=== PATIENT | male | born 1975 | race Caucasian/White ===

== ENCOUNTER 2017-12-24 14:48 | Outpatient (CLI) | payer MEDICARE ==
[~2017-12-24 14:48] MED LIST: Gadobenate Dimeglumine 529 MG/1 ML (20ML VIAL) ONE
--- NOTE | 2017-12-24 17:04 | MRI ---
MRI CERVICAL SPINE WITH AND WITHOUT CONTRAST 12/24/17 HISTORY: Relapsing/remitting multiple sclerosis. Abnormal MRI. COMPARISON: 10/15/16, 10/02/16. TECHNIQUE: Cervical spine MRI is performed without and with intravenous gadolinium administration. Multisequenti al, multiplanar imaging is performed. FINDINGS: There is appropriate T1 marrow signal intensity of the cervical vertebrae. Cervical spine vertebral h eight is maintained. There is no fracture. There is no abnormal enhancement of the vertebral bodies. The visualized brain parenchyma, cervicomedullary junction, and upper thoracic cord have appropriate signal intensity. C2-C3: No significant central canal stenosis or foraminal narrowing. C3-C4: No significant central canal stenosis or foraminal narrowing. C4-C5: No significant central canal stenosis or foraminal narrowing. C5-C6: No significant central canal stenosis or foraminal narrowing. C6-C7: No significant central canal stenosis or foraminal narrowing. C7-T1: No significant central canal stenosis or foraminal narrowing. At the C4-C5 level, there is a 3 mm hyperintensity on the posterior left aspect of the cord without o bvious abnormal enhancement. This lesion is not definitively seen on the previous examination and may represent an interval demyelinating plaque, that is not currently actively demyelinating. There is a n additional area of T2 hyperintensity in the left aspect of the cord of the C5-C6 disc space level w ithout evidence of associated enhancement. IMPRESSION: Two separate plaques are noted in the cervical cord as defined above. No evidence of enhancement to s uggest active demyelination. Note, the examination is overall limited by motion degradation. POS: [facility]
--- NOTE | 2017-12-24 20:27 | MRI ---
BRAIN MRI WITH AND WITHOUT CONTRAST 12/24/17 CLINICAL HISTORY: Relapsing remitting multiple sclerosis. Reference is made to 10/15/16 and 10/02/16 exams. FINDINGS: There is no evidence of ventriculomegaly, restricted diffusion, mass effect or midline shift. There i s a new, subcentimeter round T2 nonenhancing hyperintensity involving the medial posterior right fron ben[place] lobe indicating an interval demyelinating lesion. Otherwise, no significant change. Redemonstrati on of bilateral cerebral hemispheric signal abnormalities, grossly stable to the precontrast scan of 10/02/16. No evidence of pathologic enhancement to indicate active demyelination given clinical histor y of multiple sclerosis. No significant interval detrimental change. IMPRESSION: Grossly stable brain MRI. No MR evidence of pathologic intra-axial enhancement to indicate active dem yelination given the patient's clinical history of relapsing/remitting multiple sclerosis. There is a newly developed subcentimeter round focus of a medial posterior right frontal lobe suggest ing interval demyelinating lesion, although this does not demonstrate enhancement to confirm active d emyelination at the time of this scan. POS: [facility]
== END 2017-12-24 14:49 | disposition home or self-care (01) ==
LOC: TBSIIMAG 14:48
PROVIDERS: ATTEND Student in an Organized Health Care Education/Training Program
DX: G35 Multiple sclerosis (principal); R93.0 Abnormal findings on diagnostic imaging of skull and head, not elsewhere classified; R93.7 Abnormal findings on diagnostic imaging of other parts of musculoskeletal system
CPT/HCPCS: 70553; 72156; A9579